=== PATIENT | male | born 1950 | race Asian ===

== ENCOUNTER 2017-06-29 11:53 | Emergency (ER) | payer OTHER ==
[2017-06-29 11:57] VITALS: BMI 26.7
[2017-06-29 12:03] VITALS: BP 166/90; PULSE 68; TEMP 97.9
[2017-06-29] MEDS ORDERED: ACETAMINOPHEN 325 MG TABLET (FP) PO ONE (13:27)
[2017-06-29] MEDS ORDERED: ACETAMINOPHEN 325 MG TABLET (FP) ONE (13:30)
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
== END 2017-06-29 13:37 | disposition home or self-care (01) ==
LOC: FER 11:53
DX: S30.1XXA Contusion of abdominal wall, initial encounter (principal); S46.911A Strain of unspecified muscle, fascia and tendon at shoulder and upper arm level, right arm, initial encounter; V43.52XA Car driver injured in collision with other type car in traffic accident, initial encounter; Y93.89 Activity, other specified; Y92.410 Unspecified street and highway as the place of occurrence of the external cause
CPT/HCPCS: 99281-25